=== PATIENT | female | born 1945 | race Caucasian/White ===

== ENCOUNTER 2020-10-02 09:02 | Day surgery (SDC) | payer MEDICARE, OTHER ==
[2020-10-02] VITALS (26 sets, daily range): BP systolic 110–139; BP diastolic 63–87
[~2020-10-02] VITALS: Ht 167.6 cm; Wt 103.9 kg
[2020-10-02 09:46] LABS: BASOPHILS % (AUTO) 0.5 % (0-1); EOSINOPHILS # (AUTO) 0.2 X10'3 (0-0.9); EOSINOPHILS % (AUTO) 2.3 % (0-6); HEMATOCRIT 44.8 % (35.0-45.0); HEMOGLOBIN 14.9 g/dl (12.0-16.0); LYMPHOCYTES # (AUTO) 2.8 X10'3 (1.1-4.8); LYMPHOCYTES % (AUTO) 35.2 % (21-51); MEAN CORPUSCULAR HEMOGLOBIN 30.1 PG (27.0-31.0); MEAN CORPUSCULAR HGB CONC 33.3 g/dL (33.0-36.5); MEAN CORPUSCULAR VOLUME 90.6 FL (78-98); MONOCYTES # (AUTO) 0.5 X10'3 (0-0.9); NEUTROPHILS # (AUTO) 4.5 X10'3 (1.8-7.7); PLATELET COUNT 353 X10'3 (140-440); RED BLOOD COUNT 4.94 X10'6 (4.20-5.60); RED CELL DISTRIBUTION WIDTH 15.1 % (11.5-14.5)
[2020-10-02 09:56] LABS: ALBUMIN 3.9 G/DL (3.4-5.0); ANION GAP 10 (8-16); BLOOD UREA NITROGEN 18 MG/DL (7-18); BUN/CREATININE RATIO 16.2 (6.6-38.0); CALCIUM 9.5 MG/DL (8.5-10.1); CHLORIDE 102 MMOL/L (99-107); CREATININE 1.11 MG/DL (0.40-0.90); GLUCOSE 166 MG/DL (70-104); MAGNESIUM 2.3 MG/DL (1.5-2.4); POTASSIUM 4.3 MMOL/L (3.5-5.1); SODIUM 139 MMOL/L (135-145); TOTAL CARBON DIOXIDE 27.3 MMOL/L (24-32); eGFR 48 ML/MIN
[2020-10-02] MEDS ORDERED: normal saline 1000ml 1,000 ML IV SCH (10:35)
[2020-10-02] MEDS ORDERED: MIDAZolam 1mg/ml 10ml vial IV ONE ×2 (10:35→11:25)
[2020-10-02] MEDS ORDERED: fentaNYL/PF 50MCG/1 ML 2ML syringe IV ONE ×2 (10:35→11:25)
[2020-10-02] MEDS ORDERED: flecainide 50mg tablet PO ONE (11:05)
[2020-10-02] MEDS ORDERED: DILT-117 PO (11:11)
[2020-10-02] MEDS ORDERED: APIX5TAB3 PO (11:11)
[2020-10-02] MEDS ORDERED: DILT120C20 PO (11:11)
[2020-10-02] MEDS ORDERED: BUPR150T8 PO (11:32)
[2020-10-02] MEDS ORDERED: CELE-193 PO (11:32)
[2020-10-02] MEDS ORDERED: GABA300C PO (11:32)
[2020-10-02] MEDS ORDERED: CHOL100025 PO (11:32)
[2020-10-02] MEDS ORDERED: MULT-1249 PO (11:32)
[2020-10-02] MEDS ORDERED: HYDR12.55 PO (11:32)
[2020-10-02] MEDS ORDERED: OMEP40CA13 PO (11:32)
[2020-10-02] MEDS ORDERED: BENA10TA PO (11:32)
[2020-10-02] MEDS ORDERED: LOVA20TA2 PO (11:32)
[2020-10-02] MEDS ORDERED: FLEC50TA28 PO (11:46)
== END 2020-10-02 15:25 | disposition home or self-care (01) ==
LOC: SSTAY O 09:02
PROVIDERS: ATTEND Internal Medicine Cardiovascular Disease
DX: I48.19 Other persistent atrial fibrillation (principal); I47.1 Supraventricular tachycardia; I10 Essential (primary) hypertension; E78.5 Hyperlipidemia, unspecified; G47.30 Sleep apnea, unspecified; Z79.899 Other long term (current) drug therapy; K21.9 Gastro-esophageal reflux disease without esophagitis; Z85.3 Personal history of malignant neoplasm of breast; Z79.01 Long term (current) use of anticoagulants; Z88.5 Allergy status to narcotic agent; Z88.8 Allergy status to other drugs, medicaments and biological substances; Z90.49 Acquired absence of other specified parts of digestive tract; Z90.710 Acquired absence of both cervix and uterus; Z90.11 Acquired absence of right breast and nipple; Z82.49 Family history of ischemic heart disease and other diseases of the circulatory system; Z80.9 Family history of malignant neoplasm, unspecified
CPT/HCPCS: 36415; 80048; 83735; 85025; 85610; 92960; 93005; 94760; 94799; J2250; J3010; J7030